=== PATIENT | male | born 1965 | race Caucasian/White ===

== ENCOUNTER 2016-05-02 22:21 | Emergency (ER) | payer BC ==
[2016-05-02] MEDS ORDERED: Zofran 4 MG/2 ML VIAL IV ONE (22:48)
--- NOTE | 2016-05-02 22:53 | ERPHSYRPT ---
- History of Present Illness Time Seen by Provider: 05/02/16 22:42 Historian: patient, family () Patient Subjective Stated Complaint: PT STATES THAT HE HAS BEEN HAVING STOMACH PAIN AND CRAMPING ON LT SIDE, RADIATING INTO GROIN Triage Nursing Assessment: PT ALERT AND ORIENTED, ANSWERS QUESTIONS APPROP. PT TRANSFER FROM WHEELCHAIR TO STRETCHER WITH MINIMAL ASSIST, STATES WALKING INCREASES HIS PAIN. SKIN COOL AND DRY. ABD DISTENDED AND TENDER TO LT SIDE. HYPO BOWEL SOUNDS. 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 No hx of abd surgeries. Tonite around supper time he had left abd pain, cramping, pain to left groin, mild diarrhea, and severe vomiting. No fever or chills. Was in a cold sweat. Pain is now better. Allergies/Adverse Reactions: hydrocodone Allergy (Verified 05/02/16 22:44) Hives Penicillins Allergy (Verified 05/02/16 22:44) Swelling of Face clarithromycin [From Biaxin] Adverse Reaction (Verified 05/02/16 22:44) Home Medications: Desloratadine [Clarinex] 5 mg PO DAILY 05/02/16 [History] Levothyroxine Sodium 75 Mcg [Synthroid 75 Mcg] 75 mcg PO DAILY 05/02/16 [ History] Lisinopril/Hydrochlorothiazide [Lisinopril-Hctz 20-12.5 mg Tab] 1 each PO DAILY 05/02/16 [History] Metoprolol Succinate 50 mg [Toprol Xl 50 MG] 50 mg PO DAILY 05/02/16 [ History] Rivaroxaban [Xarelto] 15 mg PO DAILY 05/02/16 [History] Hx Tetanus, Diphtheria Vaccination/Date Given: (UNKNOWN) Hx Influenza Vaccination/Date Given: Yes Hx Pneumococcal Vaccination/Date Given: No Immunizations Up to Date: Yes - Review of Systems Constitutional: No Fever, No Chills Eyes: No Symptoms Ears, Nose, & Throat: No Symptoms Respiratory: No Cough, No Dyspnea Cardiac: No Chest Pain Abdominal/Gastrointestinal: Abdominal Pain, Nausea, Vomiting, Diarrhea (mild) Genitourinary Symptoms: No Dysuria, No Hematuria, No Flank Pain Musculoskeletal: No Back Pain Skin: No Rash Neurological: No Headache All Other Systems: Reviewed and Negative - Past Medical History Pertinent Past Medical History: Yes Cardiac History: Deep Vein Thrombosis, High Cholesterol, Hypertension Respiratory History: Pulmonary Embolism Endocrine Medical History: Hypothyroidism Other Medical History: Factor V leiden deficiency - Past Surgical History Past Surgical History: Yes Musculoskeletal: Orthopedic Surgery - Social History Smoking Status: Never smoker Exposure to second hand smoke: No Drug Use: none Patient Lives Alone: No - Nursing Vital Signs Nursing Vital Signs: Initial Vital Signs Temperature 96.7 F Temperature Source Oral Pulse Rate 84 Respiratory Rate 16 Blood Pressure [Right Arm] 124/81 Pain Intensity 8 - Physical Exam General Appearance: alert Eye Exam: PERRL/EOMI Ears, Nose, Throat Exam: normal ENT inspection, moist mucous membranes Neck Exam: normal inspection, non-tender, supple Respiratory Exam: normal breath sounds, lungs clear Cardiovascular Exam: regular rate/rhythm Gastrointestinal/Abdomen Exam: soft, tenderness (right lower and mild left lower ), No distention, No mass, No guarding Male Genitalia Exam: normal genitalia, No hernia, No testicular tenderness Back Exam: normal inspection, normal range of motion Extremity Exam: normal inspection, normal range of motion Neurologic Exam: alert, oriented x 3, cooperative, sensation nml, No motor deficits Skin Exam: other (cool skin) SpO2 Interpretation: normal SpO2: 96 Oxygen Delivery: Room Air - Course Nursing assessment & vital signs reviewed: Yes EKG Interpreted by Me: RATE (75), Sinus Rhythm, NORMAL AXIS, NORMAL INTERVALS ( QTc 432), NORMAL QRS, NORMAL ST-T - CT Exams abd/pelvis CT Interpretation: Tele-radiologist Report (2mm left distal ureteral stone) Ordered Tests: Active Orders 24 hr Category Date Time Status EKG-ER Only STAT Care 05/02/16 22:48 Active IV Insertion STAT Care 05/02/16 22:48 Active NPO (ED) STAT Care 05/02/16 22:48 Active ABDOMEN AND PELVIS W&WO CONTRA [CT] Stat Exams 05/02/16 22:49 Taken CBC W DIFF Stat Lab 05/02/16 23:06 Completed CMP Stat Lab 05/02/16 23:06 Completed LIPASE Stat Lab 05/02/16 23:06 Completed Lactic Acid Urgent Lab 05/02/16 22:50 Completed UA W/ MICROSCOPIC Stat Lab 05/02/16 00:32 Completed Medication Summary Generic Name Dose Route Start Last Admin Trade Name Freq PRN Reason Stop Dose Admin Sodium Chloride 1,000 mls @ 250 mls/hr 05/02/16 23:00 05/02/16 23:03 Sodium Chloride 0.9% 1000 Ml IV 06/01/16 22:59 250 mls/hr .Q4H MIGUEL Administration Discontinued Medications Generic Name Dose Route Start Last Admin Trade Name Gisele PRN Reason Stop Dose Admin Hydromorphone HCl 1 mg 05/03/16 00:35 05/03/16 00:42 Hydromorphone 1 Mg/Ml Ampule IV 05/03/16 00:36 1 mg STAT ONE Administration Hydromorphone HCl Confirm 05/03/16 00:40 Hydromorphone 1 Mg/Ml Ampule Administered 05/03/16 00:41 Dose 1 mg .ROUTE .STK-MED ONE Sodium Chloride Confirm 05/02/16 23:01 Sodium Chloride 0.9% 1000 Ml Administered 05/02/16 23:02 Dose 1,000 mls @ ud .ROUTE .STK-MED ONE Ondansetron HCl 4 mg 05/02/16 22:48 05/02/16 23:03 Zofran 4 Mg/2 Ml Vial IV 05/02/16 22:49 4 mg STAT ONE Administration Ondansetron HCl Confirm 05/02/16 23:01 Zofran 4 Mg/2 Ml Vial Administered 05/02/16 23:02 Dose 4 mg .ROUTE .STK-MED ONE Ondansetron HCl 4 mg 05/03/16 00:35 05/03/16 00:42 Zofran 4 Mg/2 Ml Vial IV 05/03/16 00:36 4 mg STAT ONE Administration Ondansetron HCl Confirm 05/03/16 00:39 Zofran 4 Mg/2 Ml Vial Administered 05/03/16 00:40 Dose 4 mg .ROUTE .STK-MED ONE Lab/Rad Data: Laboratory Result Diagrams 05/02/16 23:06 05/02/16 23:06 Laboratory Results 05/02/16 05/02/16 05/02/16 Range/Units 23:06 23:06 22:50 WBC 10.0 (4.0-10.5) K/mm3 RBC 5.43 (4.1-5.6) M/mm3 Hgb 15.9 (12.5-18.0) gm/dl Hct 47.1 (42-50) % MCV 86.7 (78-100) fl MCH 29.3 (26-32) pg MCHC 33.8 (32-36) g/dl RDW 14.6 H (11.5-14.0) % Plt Count 142 L (150-450) K/mm3 MPV 9.0 (6-9.5) fl Gran % 83.8 H (36.0-66.0) % Lymphocytes % 8.5 L (24.0-44.0) % Monocytes % 7.1 (0.0-12.0) % Eosinophils % 0.4 (0.00-5.0) % Basophils % 0.2 (0.0-0.4) % Basophils # 0.02 (0-0.4) Sodium 142 (136-145) mEq/L Potassium 3.9 (3.5-5.1) mEq/L Chloride 105 (98-107) mEq/L Carbon Dioxide 24.0 (21-32) mEq/L Anion Gap 16.4 H (5-15) MEQ/L BUN 15 (9-20) mg/dL Creatinine 1.15 (0.55-1.30) mg/dl Estimated GFR > 60 ML/MIN Glucose 134 H (70-110) MG/DL Lactic Acid 1.3 (0.4-2.0) Calcium 9.0 (8.5-10.1) mg/dL Total Bilirubin 0.5 (0.2-1.0) mg/dL AST 25 (15-37) U/L ALT 49 (12-78) U/L Alkaline Phosphatase 76 (46-116) U/L Serum Total Protein 7.1 (6.4-8.2) gm/dL Albumin 3.6 (3.4-5.0) g/dL Lipase 221 (73-393) U/L Ur Collection Type Urine Color (YELLOW) Urine Appearance (CLEAR) Urine pH (5-6) Ur Specific [place] (1.005-1.025) Urine Protein (Negative) Urine Glucose (UA) (NEGATIVE) mg/dL Urine Ketones (NEGATIVE) Urine Nitrite (NEGATIVE) Urine Bilirubin (NEGATIVE) Urine Urobilinogen (0-1) mg/dL Urine WBC (Auto) (NEGATIVE) Urine RBC (Auto) (0-5) Curtis/ul Urine Microscopic RBC (0-2) /HPF Urine Microscopic WBC (0-5) /HPF Ur Epithelial Cells (FEW) /HPF Urine Bacteria (NEGATIVE) /HPF Urine Mucus (NEGATIVE) /HPF Specimen Received 05/02/16 Range/Units 00:32 WBC (4.0-10.5) K/mm3 RBC (4.1-5.6) M/mm3 Hgb (12.5-18.0) gm/dl Hct (42-50) % MCV (78-100) fl MCH (26-32) pg MCHC (32-36) g/dl RDW (11.5-14.0) % Plt Count (150-450) K/mm3 MPV (6-9.5) fl Gran % (36.0-66.0) % Lymphocytes % (24.0-44.0) % Monocytes % (0.0-12.0) % Eosinophils % (0.00-5.0) % Basophils % (0.0-0.4) % Basophils # (0-0.4) Sodium (136-145) mEq/L Potassium (3.5-5.1) mEq/L Chloride (98-107) mEq/L Carbon Dioxide (21-32) mEq/L Anion Gap (5-15) MEQ/L BUN (9-20) mg/dL Creatinine (0.55-1.30) mg/dl Estimated GFR ML/MIN Glucose (70-110) MG/DL Lactic Acid (0.4-2.0) Calcium (8.5-10.1) mg/dL Total Bilirubin (0.2-1.0) mg/dL AST (15-37) U/L ALT (12-78) U/L Alkaline Phosphatase (46-116) U/L Serum Total Protein (6.4-8.2) gm/dL Albumin (3.4-5.0) g/dL Lipase (73-393) U/L Ur Collection Type CLEAN CATCH Urine Color YELLOW (YELLOW) Urine Appearance CLEAR (CLEAR) Urine pH 5.0 (5-6) Ur Specific [place] 1.015 (1.005-1.025) Urine Protein NEGATIVE (Negative) Urine Glucose (UA) NEGATIVE (NEGATIVE) mg/dL Urine Ketones TRACE (NEGATIVE) Urine Nitrite NEGATIVE (NEGATIVE) Urine Bilirubin NEGATIVE (NEGATIVE) Urine Urobilinogen 0.2 (0-1) mg/dL Urine WBC (Auto) NEGATIVE (NEGATIVE) Urine RBC (Auto) LARGE (0-5) Curtis/ul Urine Microscopic RBC 25-50 (0-2) /HPF Urine Microscopic WBC 0-2 (0-5) /HPF Ur Epithelial Cells RARE (FEW) /HPF Urine Bacteria MODERATE (NEGATIVE) /HPF Urine Mucus MODERATE (NEGATIVE) /HPF Specimen Received 05/03/16 0030 - Progress Progress Note: 05/03/16 00:55 The patient had an episode of pain and vomiting. Meds given. Discussed renal stone instr. Will attempt home. He had a rash with norco so will try percocet. Counseled pt/family regarding: lab results, diagnosis, need for follow-up, rad results - Departure Time of Disposition: 00:56 Departure Disposition: Home Clinical Impression: Renal colic on left side, Calculus of distal left ureter Condition: Stable Critical Care Time: No Referrals: CINDY HUERTA MD [Primary Care Provider] - Instructions: Kidney Stones Additional Instructions: Rx percocet every 4-6 hours for pain. Rx zofran every 6 hours for nausea. Sip fluids. Follow up with Dr huerta Wednesday. Return to ER for fever, uncontrolled pain, recurrent vomiting or concerns. Prescriptions: Ondansetron [Zofran Odt] 4 mg PO Q6HPRN PRN #10 tab.rapdis PRN Reason: Nausea/Vomiting Oxycodone HCl/Acetaminophen [Percocet 7.5-325 mg Tablet] 1 each PO Q6H PRN PRN # 20 tablet PRN Reason: Pain
[2016-05-02] MEDS ORDERED: Sodium Chloride 0.9% 1000 ML 1,000 ML IV SCH (23:00)
[2016-05-02] MEDS ORDERED: Sodium Chloride 0.9% 1000 ML 1,000 ML ONE (23:01)
[2016-05-02] MEDS ORDERED: Zofran 4 MG/2 ML VIAL ONE (23:01)
[2016-05-02 23:10] LABS: BASOPHIL % 0.2 % (0.0-0.4); Eosinophil % 0.4 % (0.00-5.0); Granulocytes % 83.8 % (36.0-66.0); Lymphocytes % 8.5 % (24.0-44.0); Mean Cell Volume 86.7 fl (78-100); Mean Corpuscular Hemoglobin 29.3 pg (26-32); Monocytes % 7.1 % (0.0-12.0); Platelet Count 142 K/mm3 (150-450); Red Blood Count 5.43 M/mm3 (4.1-5.6); Red Cell Distribution Width 14.6 % (11.5-14.0)
[2016-05-02 23:30] LABS: ALBUMIN 3.6 g/dL (3.4-5.0); ALKALINE PHOSPHATASE 76 U/L (46-116); ANION GAP 16.4 MEQ/L (5-15); BILIRUBIN,TOTAL 0.5 mg/dL (0.2-1.0); BLOOD UREA NITROGEN 15 mg/dL (9-20); CHLORIDE 105 mEq/L (98-107); Glucose 134 MG/DL (70-110); LIPASE 221 U/L (73-393); Potassium 3.9 mEq/L (3.5-5.1); SGOT/AST 25 U/L (15-37); SGPT/ALT 49 U/L (12-78); SODIUM 142 mEq/L (136-145); Total Protein 7.1 gm/dL (6.4-8.2)
[2016-05-02 23:33] VITALS: PULSE 84
[2016-05-03] MEDS ORDERED: Hydromorphone 1 mg/ml Ampule IV ONE ×2 (00:35→01:04)
[2016-05-03] MEDS ORDERED: Zofran 4 MG/2 ML VIAL IV ONE (00:35)
[2016-05-03] MEDS ORDERED: Zofran 4 MG/2 ML VIAL ONE (00:39)
[2016-05-03] MEDS ORDERED: Hydromorphone 1 mg/ml Ampule ONE ×2 (00:40→01:06)
[2016-05-03 00:44] LABS: Bacteria MODERATE /HPF (NEGATIVE); COMPLETE URINE MICROSCOPIC? YES; Collection Type CLEAN CATCH; Epithelial Cells RARE /HPF (FEW); Mucus MODERATE /HPF (NEGATIVE); WBC 0-2 /HPF (0-5)
[2016-05-03] MEDS ORDERED: ZOFRAN ODT 4 MG PO ONE (00:58)
[2016-05-03] MEDS ORDERED: PERCOCET TABLET 5/325MG PO STA (00:59)
[2016-05-03] MEDS ORDERED: PERCOCET TABLET 5/325MG ONE (01:03)
[2016-05-03] MEDS ORDERED: ZOFRAN ODT 4 MG ONE (01:03)
[2016-05-03] MEDS ORDERED: TORAdol 30 mg Injection IV ONE (01:04)
[2016-05-03 01:05] VITALS: BP 146/94; O2SAT 94
[2016-05-03] MEDS ORDERED: TORAdol 30 mg Injection ONE (01:06)
--- NOTE | 2016-05-03 17:57 | XRAY ---
Indication: Severe abdominal pain, vomiting, and diarrhea. Multiple contiguous axial images obtained through the abdomen and pelvis prior to and following 80 cc of Isovue-370 contrast. Comparison: None Lung bases demonstrates mild bibasilar dependent atelectasis. Heart is not enlarged. Noncontrasted images through the abdomen and pelvis demonstrates a 2-3 mm distal left ureteral calculus approximately 1 cm proximal to the UVJ. Proximal left ureter slightly prominent with mild hydronephrosis consistent with partial obstructive uropathy. No other pathologic visceral calcifications/calculi. Noncontrasted stomach and bowel loops appear nonobstructed. Normal appendix. No free fluid/air. Postcontrast images images normal visceral enhancement and renal excretion. 1.5 cm right hepatic lobe peripheral cyst. Remaining liver, gallbladder, pancreas, spleen, adrenal glands, kidneys, ureters, latter, and aorta appear unremarkable. No pathologic retroperitoneal lymphadenopathy. Osseous structures intact with moderate lumbosacral junction degenerative disc disease. Small bilateral fatty inguinal hernias. Impression: 1. 2-3 mm distal left ureteral calculus producing partial obstruction as detailed. 2. Incidental hepatic cyst and small fatty bilateral inguinal hernias. Comment: Preliminary interpretation was made by [facility]. No critical discrepancy. CTDI 28.13
== END 2016-05-03 02:10 | disposition home or self-care (01) ==
LOC: ED 22:21
DX: N23 Unspecified renal colic (principal); N20.1 Calculus of ureter; D68.51 Activated protein C resistance; R10.9 Unspecified abdominal pain; R11.2 Nausea with vomiting, unspecified; R19.7 Diarrhea, unspecified; I10 Essential (primary) hypertension; E78.00 Pure hypercholesterolemia, unspecified; Z86.711 Personal history of pulmonary embolism; Z86.718 Personal history of other venous thrombosis and embolism; Z79.01 Long term (current) use of anticoagulants; Z79.899 Other long term (current) drug therapy
CPT/HCPCS: 36000; 36415; 74178; 80053; 81000; 83605; 83690; 85025; 93005; 96360; 96361; 96374; 96375; 96376; 99284; 99285; J1170; J1885; J2405; Q0162

== ENCOUNTER 2017-07-03 10:33 | Emergency (ER) | payer BC ==
[2017-07-03] MEDS ORDERED: Zofran 4 MG/2 ML VIAL IV ONE (11:12)
[2017-07-03] MEDS ORDERED: Sodium Chloride 0.9% 1000 ML 1,000 ML IV STA (11:12)
--- NOTE | 2017-07-03 11:17 | ERPHSYRPT ---
- History of Present Illness Time Seen by Provider: 07/03/17 11:03 Historian: patient Exam Limitations: clinical condition Patient Subjective Stated Complaint: pt c/o of abd pain for 2 weeks, reports worsening today. states it is tender to touch at the left lower quad. Triage Nursing Assessment: pt is aox3, pupils perrl, resps easy and non labored , pt is afebrile. radial pulses strong and equal. abd is round, soft and tender with palpation to the left lower quad. pain is intermittent. pain is non radiating. bowel sounds are present and normoactivex4. pt skin is pink warm and dry. Physician History: PATIENT WITH A HISTORY OF KIDNEY STONES COMPLAINS OF LEFT SIDED ABDOMINAL AND FLANK PAIN X 2 WEEKS PROGRESSIVELY WORSE. DENIES HEMATURIA, DYSURIA, FEVER, NAUSEA OR DIARRHEA. Timing/Duration: week(s) Activities at Onset: none Quality: sharpness, stabbing Abdominal Pain Onset Location: LLQ, flank Pain Radiation: no radiation Severity of Pain-Max: moderate Severity of Pain-Current: moderate Modifying Factors: Improves With: movement Associated Symptoms: denies symptoms Allergies/Adverse Reactions: hydrocodone Allergy (Verified 07/03/17 11:08) Hives Penicillins Allergy (Verified 07/03/17 11:08) Swelling of Face diphenhydramine [From Benadryl] Adverse Reaction (Unknown, Verified 07/03/17 11: 21) anxiety, palpatations clarithromycin [From Biaxin] Adverse Reaction (Verified 07/03/17 11:08) Home Medications: Desloratadine [Clarinex] 5 mg PO DAILY 05/02/16 [History] Levothyroxine Sodium 75 Mcg [Synthroid 75 Mcg] 75 mcg PO DAILY 05/02/16 [ History] Lisinopril/Hydrochlorothiazide [Lisinopril-Hctz 20-12.5 mg Tab] 1 each PO DAILY 05/02/16 [History] Metoprolol Succinate 50 mg [Toprol Xl 50 MG] 50 mg PO DAILY 05/02/16 [ History] Rivaroxaban [Xarelto] 15 mg PO DAILY 05/02/16 [History] Hx Tetanus, Diphtheria Vaccination/Date Given: No Hx Influenza Vaccination/Date Given: No Hx Pneumococcal Vaccination/Date Given: No Immunizations Up to Date: Yes - Review of Systems Constitutional: No Fever, No Chills Eyes: No Symptoms Ears, Nose, & Throat: No Symptoms, Throat Swelling Respiratory: No Cough, No Dyspnea Cardiac: No Symptoms, No Chest Pain, No Edema, No Syncope Abdominal/Gastrointestinal: Abdominal Pain, No Nausea, No Vomiting, No Diarrhea Genitourinary Symptoms: Flank Pain, No Dysuria Musculoskeletal: No Symptoms, No Back Pain, No Neck Pain Skin: No Symptoms, No Rash Neurological: No Dizziness, No Focal Weakness, No Sensory Changes Psychological: No Symptoms Endocrine: No Symptoms All Other Systems: Reviewed and Negative - Past Medical History Pertinent Past Medical History: Yes Cardiac History: Deep Vein Thrombosis, High Cholesterol, Hypertension Respiratory History: Pulmonary Embolism Endocrine Medical History: Hypothyroidism GI Medical History: GERD History: Other Other Medical History: Factor V leiden deficiency. kidney stone 2016 - Past Surgical History Past Surgical History: Yes Musculoskeletal: Orthopedic Surgery Male Surgical History: Vasectomy Other Surgical History: nasal surgery 1998. tumor removal 1981. wisdom teeth extracted 1980 - Social History Smoking Status: Never smoker Exposure to second hand smoke: No Drug Use: none Patient Lives Alone: No - Nursing Vital Signs Nursing Vital Signs: Initial Vital Signs Pulse Rate 79 07/03/17 10:52 Respiratory Rate 20 07/03/17 10:52 Blood Pressure 105/86 07/03/17 10:52 O2 Sat by Pulse Oximetry 95 07/03/17 10:52 Pain Scale Pain Intensity 2 - Physical Exam General Appearance: mild distress Eye Exam: PERRL/EOMI, eyes nml inspection Ears, Nose, Throat Exam: normal ENT inspection, pharynx normal, moist mucous membranes Neck Exam: normal inspection, non-tender, supple, full range of motion Respiratory Exam: normal breath sounds, lungs clear, No respiratory distress Cardiovascular Exam: regular rate/rhythm, normal heart sounds Gastrointestinal/Abdomen Exam: soft, normal bowel sounds, tenderness (LEFT LATERAL UPPER AND LOWER SQUAD TENDERNESS, NO GUARDING OR REBOUND TENDERNESS), No mass Back Exam: normal inspection, normal range of motion, CVA tenderness (MODERATE LEFT CVA TENDERNESS), No vertebral tenderness Extremity Exam: normal inspection, normal range of motion, pelvis stable Neurologic Exam: alert, oriented x 3, cooperative, normal mood/affect, nml cerebellar function, sensation nml, No motor deficits Skin Exam: normal color, warm, dry SpO2: 95 Oxygen Delivery: Room Air - CT Exams Abdomen/Pelvis CT Interpretation: Tele-radiologist Report (NORMAL APPENDIX, THERE IS A 4.8 CM LESION OF FAT DENSITY WITH SURROUNDING INFLAMMATORY CHANGE ADJACENT TO THE DISTAL DESCENDING COLON CONSISTENT WITN EPIPLOIC APPENDAGITIS, NO BOWEL OBSTRUCTION OR FREE AIR) Ordered Tests: Active Orders 24 hr Category Date Time Status Clean Catch Urine Specimen STAT Care 07/03/17 11:12 Active IV Insertion STAT Care 07/03/17 11:12 Active Oxygen-ED Only NASAL CANNULA 2 lpm Care 07/03/17 11:15 Active ABDOMEN AND PELVIS W/0 CONTRAS [CT] Stat Exams 07/03/17 11:18 Taken BLOOD CULTURE Stat Lab 07/03/17 11:20 Ordered BMP Stat Lab 07/03/17 11:20 Completed CBC W DIFF Stat Lab 07/03/17 11:20 Completed UA W/RFX UR CULTURE Stat Lab 07/03/17 11:20 Completed Medication Summary Discontinued Medications Generic Name Dose Route Start Last Admin Trade Name Freq PRN Reason Stop Dose Admin Diphtheria/Tetanus/Acell Pertussis 0.5 ml 07/03/17 11:30 Adacel Vial IM 07/03/17 11:31 .ONCE ONE Hydromorphone HCl 1 mg 07/03/17 11:26 Hydromorphone 1 Mg/Ml Ampule IV 07/03/17 11:27 STAT ONE Sodium Chloride 1,000 mls @ 999 mls/hr 07/03/17 11:12 07/03/17 11:31 Sodium Chloride 0.9% 1000 Ml IV 07/03/17 12:12 999 mls/hr .Q1H1M STA Administration Sodium Chloride Confirm 07/03/17 11:18 Sodium Chloride 0.9% 1000 Ml Administered 07/03/17 11:19 Dose 1,000 mls @ ud .ROUTE .STK-MED ONE Ketorolac Tromethamine 30 mg 07/03/17 13:26 07/03/17 13:33 Toradol 30 Mg Injection IV 07/03/17 13:27 30 mg STAT ONE Administration Ketorolac Tromethamine Confirm 07/03/17 13:31 Toradol 30 Mg Injection Administered 07/03/17 13:32 Dose 30 mg .ROUTE .STK-MED ONE Morphine Sulfate 10 mg 07/03/17 11:44 07/03/17 11:49 Morphine Sulfate 10 Mg/Ml IV 07/03/17 11:45 10 mg STAT ONE Administration Morphine Sulfate Confirm 07/03/17 11:47 Morphine Sulfate 10 Mg/Ml Administered 07/03/17 11:48 Dose 10 mg .ROUTE .STK-MED ONE Ondansetron HCl 4 mg 07/03/17 11:12 07/03/17 11:31 Zofran 4 Mg/2 Ml Vial IV 07/03/17 11:13 4 mg STAT ONE Administration Ondansetron HCl Confirm 07/03/17 11:18 Zofran 4 Mg/2 Ml Vial Administered 07/03/17 11:19 Dose 4 mg .ROUTE .STK-MED ONE Lab/Rad Data: Laboratory Result Diagrams 07/03/17 11:20 07/03/17 11:20 Laboratory Results 07/03/17 07/03/17 07/03/17 Range/Units 11:20 11:20 11:20 WBC 6.1 (4.0-10.5) K/mm3 RBC 5.37 (4.1-5.6) M/mm3 Hgb 15.8 (12.5-18.0) gm/dl Hct 46.7 (42-50) % MCV 87.0 (78-100) fl MCH 29.4 (26-32) pg MCHC 33.8 (32-36) g/dl RDW 14.9 H (11.5-14.0) % Plt Count 128 L (150-450) K/mm3 MPV 8.7 (6-9.5) fl Gran % 67.3 H (36.0-66.0) % Eos # (Auto) 0.11 (0-0.5) Absolute Lymphs (auto) 1.01 (1.0-4.6) Absolute Monos (auto) 0.87 (0.0-1.3) Lymphocytes % 16.5 L (24.0-44.0) % Monocytes % 14.2 H (0.0-12.0) % Eosinophils % 1.8 (0.00-5.0) % Basophils % 0.2 (0.0-0.4) % Absolute Granulocytes 4.11 (1.4-6.9) Basophils # 0.01 (0-0.4) Sodium 139 (137-145) mmol/L Potassium 3.7 (3.5-5.1) mmol/L Chloride 103 (98-107) mmol/L Carbon Dioxide 27 (22-30) mmol/L Anion Gap 12.1 (5-15) MEQ/L BUN 15 (9-20) mg/dL Creatinine 0.81 (0.66-1.25) mg/dL Estimated GFR > 60.0 ML/MIN Glucose 116 H (74-106) mg/dL Calcium 8.9 (8.4-10.2) mg/dL Ur Collection Type CCMS Urine Color YELLOW (YELLOW) Urine Appearance CLEAR (CLEAR) Urine pH 5.0 (5-6) Ur Specific [place] 1.025 (1.005-1.025) Urine Protein NEGATIVE (Negative) Urine Ketones NEGATIVE (NEGATIVE) Urine Blood NEGATIVE (0-5) Curtis/ul Urine Nitrite NEGATIVE (NEGATIVE) Urine Bilirubin NEGATIVE (NEGATIVE) Urine Urobilinogen NORMAL (0-1) mg/dL Ur Leukocyte Esterase NEGATIVE (NEGATIVE) Urine Culture Reflexed NO (NO) Urine Glucose NEGATIVE (NEGATIVE) mg/dL Specimen Received 07/03 1130 - Progress Progress Note: 07/03/17 11:25 IV NORMAL SALINE 1000ML/HR ZOFRAN 4MG, DILAUDID 1MG IV, AND TORADOL 30MG IV 07/03/17 13:29 Discussed with DrAleksandr: Diann (CONSULT DR Niki GUZMAN FOR OFFICE APPOINTMENT ON Wednesday07/06/2017) - Departure Time of Disposition: 13:35 Departure Disposition: Home Clinical Impression: ACUTE EPPIPLOIC APPENDAGITIS Condition: Stable Critical Care Time: No Referrals: CINDY HUERTA MD [Primary Care Provider] - Additional Instructions: CALL GENERAL SURGEON DR GUZMAN'S OFFICE TOMORROW AT [phone] TO SCHEDULE APPOINTMENT FOR WEDNESDAY. BEGIN TORADOL 10MG EVERY 6 HOURS FOR PAIN DISCOMFORT, TYLENOL #3 EVERY 4 HOURS NEEDED FOR BREAKTHROUGH PAIN. CONTINUE XARELTO DIRECTED. Prescriptions: Codeine Phosphate/APAP #3 [Tylenol #3 Tablet] 0 tab PO Q6H PRN PRN #10 tablet PRN Reason: Pain Ketorolac Tromethamine [Toradol] 10 mg PO Q6H PRN PRN #20 tablet PRN Reason: Pain
[2017-07-03] MEDS ORDERED: Zofran 4 MG/2 ML VIAL ONE (11:18)
[2017-07-03] MEDS ORDERED: Sodium Chloride 0.9% 1000 ML 1,000 ML ONE (11:18)
[2017-07-03] MEDS ORDERED: Hydromorphone 1 mg/ml Ampule IV ONE (11:26)
[2017-07-03] MEDS ORDERED: Adacel Vial IM ONE (11:30)
[2017-07-03 11:31] LABS: BASOPHIL % 0.2 % (0.0-0.4); Basophil (Absolute #) 0.01 (0-0.4); Eosinophil % 1.8 % (0.00-5.0); Eosinophil (Absolute #) 0.11 (0-0.5); Granulocyte Absolute (ANC) 4.11 (1.4-6.9); Granulocytes % 67.3 % (36.0-66.0); Hematocrit 46.7 % (42-50); Hemoglobin 15.8 gm/dl (12.5-18.0); Lymphocyte (Absolute #) 1.01 (1.0-4.6); Lymphocytes % 16.5 % (24.0-44.0); Mean Corpuscular Hemoglobin 29.4 pg (26-32); Mean Corpuscular Hgb Concent. 33.8 g/dl (32-36); Mean Platelet Volume 8.7 fl (6-9.5); Monocyte (Absolute #) 0.87 (0.0-1.3); Monocytes % 14.2 % (0.0-12.0); Platelet Count 128 K/mm3 (150-450); Red Blood Count 5.37 M/mm3 (4.1-5.6); Red Cell Distribution Width 14.9 % (11.5-14.0); White Blood Count 6.1 K/mm3 (4.0-10.5)
[2017-07-03 11:39] LABS: Appearance CLEAR (CLEAR); Bilirubin NEGATIVE (NEGATIVE); Blood NEGATIVE Ery/ul (0-5); Glucose NEGATIVE (NEGATIVE); Ketones NEGATIVE (NEGATIVE); Leukocyte Esterase NEGATIVE (NEGATIVE); Nitrite NEGATIVE (NEGATIVE); Protein,Urine Dip NEGATIVE (Negative); Specific Gravity 1.025 (1.005-1.025); Urobilinogen NORMAL mg/dL (0-1)
[2017-07-03] MEDS ORDERED: MORPHINE SULFATE 10 MG/ML IV ONE (11:44)
[2017-07-03] MEDS ORDERED: MORPHINE SULFATE 10 MG/ML ONE (11:47)
[2017-07-03 11:49] LABS: ANION GAP 12.1 MEQ/L (5-15); BLOOD UREA NITROGEN 15 mg/dL (9-20); CHLORIDE 103 mmol/L (98-107); Calcium 8.9 mg/dL (8.4-10.2); Carbon Dioxide 27 mmol/L (22-30); Creatinine 1 0.81 mg/dL (0.66-1.25); Glucose 116 mg/dL (74-106); Potassium 3.7 mmol/L (3.5-5.1); SODIUM 139 mmol/L (137-145)
[2017-07-03] MEDS ORDERED: TORAdol 30 mg Injection IV ONE (13:26)
[2017-07-03] MEDS ORDERED: TORAdol 30 mg Injection ONE (13:31)
[2017-07-03 13:52] VITALS: BP 103/77; PULSE 64; O2SAT 97
--- NOTE | 2017-07-03 17:32 | XRAY ---
Indication: Left abdominal pain. History kidney stone. Multiple contiguous axial images obtained through the abdomen and pelvis without contrast as ordered. Comparison: May 02, 2016. Lung bases again demonstrates bibasilar atelectasis/scarring. No infiltrate or effusion. Heart is not enlarged. Noncontrasted stomach and bowel loops appear nonobstructed. Normal appendix. Distal descending colon now demonstrates small focus of mild pericolonic stranding, colitis versus epiploic appendagitis. No free fluid/air. Stable right lobe hepatic cyst. Remaining liver, gallbladder, pancreas, spleen, adrenal glands, kidneys, ureters, bladder, and aorta appear unremarkable for noncontrast exam. Osseous structures intact again with lumbosacral junction degenerative disc disease. Stable small bilateral fatty inguinal hernias. Impression: 1. Small focal distal descending colon pericolonic stranding, colitis versus epiploic appendagitis. No complications. 2. Stable hepatic cyst and small bilateral fatty inguinal hernias. Comment: Preliminary interpretation was made by [facility]. No discrepancy. CTDI 23.68
== END 2017-07-03 13:56 | disposition home or self-care (01) ==
LOC: ED 10:33
DX: K63.89 Other specified diseases of intestine (principal); R10.32 Left lower quadrant pain; Z87.442 Personal history of urinary calculi; Z79.899 Other long term (current) drug therapy
CPT/HCPCS: 36000; 36415; 74176; 80048; 81002; 85025; 87040; 90471; 90715; 96360; 96374; 96375; 99283; 99284; J1885; J2270; J2405